=== PATIENT | male | born 1935 | race Caucasian/White ===

== ENCOUNTER 2018-10-11 14:56 | Observation (INO) ==
[2018-10-11] MEDS ORDERED: Naloxone 0.4 MG/ML INJ IVP PRN (17:51)
[2018-10-11] MEDS ORDERED: *HR* LORazepam 2 MG/ML VIAL IVP PRN (18:28)
--- NOTE | 2018-10-11 18:38 | Internal Med History&Physical ---
Date of Encounter: 10/11/18 Time of Encounter: 18:32 Internal Medicine - H&P: HPI History of present illness: Mr. CRAWFORD is a 83 year old male with history of CAD s/p CABG, hypertension, atrial fibrillation, neck surgery with screws placed presented as a transfer from for syncopal episode. He was transferred here for Neurology evaluation. Patient states he was starting a new medication today by his doctor, unsure of what medication changes were made. He took his medications and then went in his truck in a parking lot for an unknown amount of time. He was reported to be pale and diaphoretic. Patient does not recall this episode. He denies any dizziness, blurry vision, n/v, chest pain, fevers/chills, change in hearing, loss of balance, rigidity. He has not had any episode like this in the past. He was showed to have atrial fibrillation on monitor in ED. He was confused but eventually returned to baseline mental status. At [facility], ECG done showed irregularly irregular rhythm at 73 bpm, no ST or T wave changes. A CBC was unremarkable. CMP was normal outside of borderline elevated total bilirubin. INR 1.1, Chest x-ray showed no acute process. CT head without contrast showed no acute process, did show a chronic large bony area 4 cm inferior to occipital region that is post surgical from 2009. Internal Medicine - H&P: Meds Allergy/AdvReac Type Severity Reaction Status Date / Time No Known Allergies Allergy Verified 10/11/18 18:55 All Systems PM: A 10-system review of systems was performed and is negative for pertinent findings except as documented above in the HPI. - Constitutional Constitutional: no chills, no fever(s), no night sweats - EENT Eyes: no change in vision, no discharge, no pain, no photophobia Ears: no ear discharge, no ear pain, no tinnitus Nose, mouth and throat: no dysphagia, no nasal discharge, no neck pain, no sore throat - Cardiovascular Cardiovascular ROS IM: syncope, no chest pain, no diaphoresis, no dyspnea, no lightheadedness, no palpitations - Respiratory Respiratory: no cough, no dyspnea, no wheezing, no excessive phlegm production - Gastrointestinal Gastrointestinal: no abdominal pain, no diarrhea, no hematemesis, no hematochezia, no melena, no nausea, no vomiting - Musculoskeletal Musculoskeletal ROS IM: no numbness, no tingling - Integumentary Integumentary IM: no rash, no unusual bruising - Neurological Neurological ROS: no confusion, no convulsions, no focal weakness, no numbness, no tingling, no tremor(s) - Hematologic/Lymphatic Hematologic/Lymphatic: no easy bruising - Constitutional General appearance: Present: A&O X 3, pleasant, no acute distress Exam: . - Head Head exam: Present: atraumatic, normocephalic - Eye Eye exam: Present: PERRL, conjuntiva pink, sclera anicteric Pupils: Present: PERRL - Neck Neck exam general surgery: Present: supple, trachea midline. Absent: lymphadenopathy Additional comments: posterior neck with firm elevated region of cervical spine that is non-tender, patient states is chronic after emergent neck surgery in the past. - Respiratory Respiratory exam: Present: CTAB. Absent: accessory muscle use, rales, rhonchi, wheezes - Cardiovascular Cardiovascular exam: Present: RRR, +S1, +S2. Absent: diastolic murmur, gallop, rubs, systolic murmur - GI/Abdominal GI/Abdominal exam: Present: normal bowel sounds, soft, no peritoneal signs. Absent: distended, tenderness - Extremities Exam Extremities exam: Present: warm, radial pulses palpable and symmetrical. Absent: calf tenderness, cyanotic, pedal edema - Neurological Exam Neurological exam: Present: CN II-XII intact, oriented X3, no focal deficits. Absent: pronater drift, facial droop, speech deficit - Skin Skin exam: Present: dry, intact - Assessment and Plan (1) Syncope and collapse Current Visit: Yes Status: Acute Assessment and plan: There is concern for seizure episode. Event went unwitness and patient had no presyncopal symptoms. He was found to have loss of both bowel and bladder continence. He started new medications today unsure of what they are. Basic workup in ED was negative, including CT head without any acute changes. No focal deficits to suggest stroke. - Medication records requestion, eval for possible cause of syncope - Neurology consulted, recommendations appreciated. - Ativan 1 mg IV prn seizure-like activy - Seizure precautions. - Echocardiogram, carotidd duplex bilateral (2) History of CVA (cerebrovascular accident) Current Visit: Yes Status: Acute (3) Hypertension Current Visit: Yes Status: Acute Assessment and plan: Home medication records requestion. Currently will give IV Hydralazine prn HTN until med rec done. Qualifiers: Hypertension type: essential hypertension Qualified Code(s): I10 - Essential (primary) hypertension (4) Coronary artery disease Current Visit: Yes Status: Acute Assessment and plan: Resume home medications when med rec complete. Qualifiers: Coronary Disease-Associated Artery/Lesion type: [place] artery [place] vs. transplanted heart: [place] heart Associated angina: without angina Qualified Code(s): I25.10 - Atherosclerotic heart disease of [place] coronary artery without angina pectoris (5) Atrial fibrillation Current Visit: Yes Status: Acute Assessment and plan: Unsure if patient is on heart rate medication, need med rec for this. Will place IV Lopressor prn tachycardia. Qualifiers: Atrial fibrillation type: chronic Qualified Code(s): I48.2 - Chronic atrial fibrillation - Time Spent With Patient Total time spent is greater than 50% in coordination of care (as documented) at patient's floor/unit and/or counseling patient:
[2018-10-11] MEDS ORDERED: *HR* Metoprolol 5 MG/5 ML VIAL IVP PRN (18:54)
[2018-10-11] MEDS ORDERED: Perflutren Lipid Microsphere 1.3 ML in 0.9 % Sodium Chloride 8.7 ML IVP ONE (19:39)
[2018-10-12 02:49] LABS: Basophils # 0.1 K/mcL (0.0-0.2); Basophils % 0.7 %; Eosinophils # 0.2 K/mcL (0.0-0.6); Eosinophils % 3.2 %; Hematocrit 45.4 % (37.5-50.1); Hemoglobin 14.8 g/dL (12.9-16.9); Immature Granulocytes % 0.4 % (0-4); Lymphocytes # 1.2 K/mcL (0.6-4.6); Lymphocytes % 17.3 %; Mean Corpuscular HGB Conc 32.6 g/dL (31.6-35.5); Mean Corpuscular Hemoglobin 30.7 pg (28.0-33.3); Mean Corpuscular Volume 94.2 fL (83.0-100.0); Mean Platelet Volume 11.3 fL (9.4-12.4); Monocytes # 0.9 K/mcL (0.0-1.3); Neutrophils # 4.7 K/mcL (1.6-8.9); Platelet Count 184 K/mcL (140-400); Red Blood Count 4.82 M/mcL (4.19-5.50); Red Cell Distribution Width 12.1 % (11.5-14.5); Segmented Neutrophils % 66.4 %; White Blood Count 7.1 K/mcL (4.3-11.1)
[2018-10-12 03:10] LABS: BUN/Creatinine Ratio 14 (6-26); Blood Urea Nitrogen 17 mg/dL (8-23); Calcium 9.2 mg/dL (8.6-10.3); Carbon Dioxide 27 mEq/L (23-29); Chloride 101 mEq/L (98-107); Glucose 89 mg/dL (70-105); Osmolality,Calculated 285 (280-300); Potassium 3.7 mEq/L (3.5-5.1); Sodium 137 mEq/L (136-145); eGFR For African Americans > 60 (> 60); eGFR For Non-African Americans 58 (> 60)
[2018-10-12] MEDS: *HR* Heparin 5,000 UNIT/ML VIAL SQ SCH ×2 (06:00→16:04)
--- NOTE | 2018-10-12 08:46 | Internal Med Progress Note ---
Hospitalist Progress Note - Encounter Date of Encounter: 10/12/18 Time of Encounter: 08:46 - Subjective Interval History: Patient was seen and examined at bedside he is alert and appropriate does not appear to have any focal deficits-defibrillator implant with the patient verbalized understanding. - Exam Vitals: Temp Pulse Resp BP Pulse Ox 97.6 F 58 16 121/78 96 10/12/18 06:39 10/12/18 06:39 10/12/18 06:39 10/12/18 06:39 10/12/18 06:39 Exam: Skin: Free of rash and discoloration. Eyes: Sclera is white. There is no discharge from eyes. ENMT: Oral/pharyngeal mucosa is normal in appearance. There is no discharge from nose or ears. Respiratory: Normal breath sounds with no crackles and wheezes bilaterally. CV: Heart is regular with no gallop or murmur. GI: Abdomen is flat and soft with no palpable mass or visceromegaly. : There is no tenderness in patient's flanks bilaterally. Neuro exam: He has good strength in upper and lower extremities. He has normal eye movements. Psychiatric: He has normal affect. His thought process is appropriate to the situation. - Assessment and Plan (1) Syncope and collapse Current Visit: Yes Status: Acute Assessment and Plan: There is concern for seizure episode. Event went unwitness and patient had no presyncopal symptoms. He was found to have loss of both bowel and bladder cont inence. He started new medications today unsure of what they are. Basic workup in ED was negative, including CT head without any acute changes. No focal deficits to suggest stroke. - Medication records requestion, eval for possible cause of syncope - Neurology consulted, recommendations appreciated. - Ativan 1 mg IV prn seizure-like activy - Seizure precautions. - Echocardiogram, carotidd duplex bilateral 10/12 Received medication list appears the patient has been initiated also new medic mounika that may be contributing to his syncopal episode including Lasix, labetalol and glipizide. Neurology consult and appreciate recommendations Continue seizure precautions Echocardiogram and carotid duplex Will check orthostatic vital signs (2) History of CVA (cerebrovascular accident) Current Visit: Yes Status: Acute Assessment and Plan: History of CVA continue with aspirin and statin Will need workup with neurology continuous cardiac monitoring (3) Hypertension Current Visit: Yes Status: Acute Assessment and Plan: Has orthostatic hypotension which we will hold for now. Currently will give IV Hydralazine prn HTN until med rec done. (4) Coronary artery disease Current Visit: Yes Status: Acute Assessment and Plan: Resume home medications -we will hold Coreg for now due to low blood pressure (5) Atrial fibrillation Current Visit: Yes Status: Acute Assessment and Plan: Currently rate controlled holding Coreg at this time due to hypotension continue daily aspirin - Time Spent with Patient Total time spent is greater than 50% in coordination of care (as documented) at patient's floor/unit and/or counseling patient: Internal Medicine: Result - Labs CBC & Chem 7: 10/12/18 01:55 10/12/18 01:55 Labs: Short CBC 10/12/18 Range/Units 01:55 WBC 7.1 (4.3-11.1) K/mcL Hgb 14.8 (12.9-16.9) g/dL Hct 45.4 (37.5-50.1) % Plt Count 184 (140-400) K/mcL Neutrophils # 4.7 (1.6-8.9) K/mcL BMP 10/12/18 01:55 Sodium 137 Potassium 3.7 Chloride 101 Carbon Dioxide 27 BUN 17 Creatinine 1.20 Glucose 89 Calcium 9.2 Consult Discharge Plan - Plan [facility] - 10/22/18 11:15 am (3) Hypertension Qualifiers: Hypertension type: essential hypertension Qualified Code(s): I10 - Essential (primary) hypertension (4) Coronary artery disease Qualifiers: Coronary Disease-Associated Artery/Lesion type: [place] artery [place] vs. transplanted heart: [place] heart Associated angina: without angina Qualified Code(s): I25.10 - Atherosclerotic heart disease of [place] coronary artery without angina pectoris (5) Atrial fibrillation Qualifiers: Atrial fibrillation type: chronic Qualified Code(s): I48.2 - Chronic atrial fibrillation
--- NOTE | 2018-10-12 11:45 | Neurology - Consult Note ---
<Fabiano Gilliam - Last Filed: 10/12/18 11:41> Date of Encounter: 10/12/18 Time of Encounter: 09:30 Assessment and Plan (1) Syncope and collapse Current Visit: Yes Status: Acute EEG to rule out seizure activity as cause of loss of consciousness. CT scan was negative for stroke. EKG showed atrial fibrillation making further stroke work up necessary. Will obtain Echocardiogram and Carotid Duplex to rule out embolic sources. Will obtain medication list to rule out medication induced syncopal episode. History of Present Illness Chief complaint: "Fell over in my truck" HPI: Mr. Robles is a 83 year old male with a past medical history of CAD s/p CABG, HTN, and A. Fib who was admitted from [place] following recent episode of loss of conciousness. He reports that the last thing he remembers he was getting in to his truck to drive to a friends house and then woke up in the hospital. He is unsure how he came to the hospital or any symptoms of dizziness, vertigo, nausea, chest pain or shortness of breath before he awoke in the ED. He admits to recent changes in his medications which he believes were the cause of this episode. He denies any similar episodes in the past. He further denies any history of stroke or seizures. Brief chart review mentioned patient may have lost bowel and bladder function during this episode, but patient was unable to verify this. Past Med Surg Social Fam HX - Past Medical History Medical history: hypertension, migraine Additional medical history: CABG, pacer/ defib Psychiatric history: no psych history - Past Surgical History Surgical History: appendectomy, cholecystectomy, coronary bypass (CABG), orthopedic, other Additional surgical history: screws/ plates in neck - Social History Smoking Status: Never smoker Smokeless Tobacco Status: No Alcohol use: none Drug use: none - Family History Father Living Status: Age at : 86 Cause of : unk Hx Family Cardiac Disorders: Yes Hx Family Respiratory Disorders: Yes Mother Age: 105 Living Status: Age at : 105 Medications and Allergies Aspirin 325 mg PO DAILY 10/12/18 [History] Carvedilol [Coreg] 6.25 mg PO BIDWM 10/12/18 [History] Cholecalciferol (D-3) [Vitamin D] 2,000 unit PO DAILY 10/12/18 [History] Furosemide [Lasix] 80 mg PO DAILY 10/12/18 [History] GlipiZIDE [Glucotrol] 10 mg PO 0800 10/12/18 [History] Mupirocin [Bactroban Oint] 1 appl TP TID 10/12/18 [History] Potassium Chloride [K-Tab ER] 20 meq PO DAILY 10/12/18 [History] Sildenafil Citrate 100 mg PO PRN PRN 10/12/18 [History] Tolnaftate [Antifungal Cream] 1 appl TP BID 10/12/18 [History] Triamcinolone Acet 0.1% CRM [Kenalog] 1 appl TP BID 10/12/18 [History] Allergy/AdvReac Type Severity Reaction Status Date / Time No Known Allergies Allergy Verified 10/11/18 18:55 All Systems: The remainder of the systems were reviewed and are negative - Constitutional Constitutional ROS IM: no chills, no daytime sleepiness, no excessive sweating, no fatigue, no lethargy - Nose, Mouth, Throat Nose, mouth and throat: abnormal hearing (some diminished hearing bilaterally), no bleeding gums, no disequilibrium, no dizziness, no headache(s) - Cardiovascular Cardiovascular ROS IM: no acrocyanosis, no chest pain, no dyspnea, no rapid heart rate, no slow heart rate - Respiratory Respiratory IM: no cough, no dyspnea - Gastrointestinal Gastrointestinal: no abdominal pain, no bloating, no change in stool character - Genitourinary Genitourinary ROS: no change in urinary stream, no difficulty urinating, no flank pain - Musculoskeletal Musculoskeletal ROS IM: arthralgias, no abnormal gait, no numbness, no radiating pain into limb, no stiffness - Integumentary Integumentary IM: no acne, no bleeding lesions - Neurological Neurological ROS: no abnormal gait, no behavioral changes, no disequilibrium, no dizziness, no focal weakness, no lack of coordination, no loss of vision, no paresthesias - Psychiatric Psychiatric general PM: no abnormal sleep pattern, no anhedonia, no anxiety, no behavioral changes, no confusion, no depression, no difficulty concentrating, no hopelessness, no irritability - Endocrine Endocrine IM: no fatigue, no flushing - Hematologic/Lymphatic Hematologic/Lymphatic pediatric: no easy bleeding Physical Examination - Vital Signs Vital Signs: Initial Vital Signs Temp Pulse Resp BP Pulse Ox 97.6 F 95 14 103/68 93 10/11/18 19:11 10/11/18 19:11 10/11/18 19:11 10/11/18 19:11 10/11/18 19:11 - Constitutional General appearance: comfortable - Neurologic Sensorimotor examination: intact Detailed motor examination: grossly full strength in all extremities Detailed sensory examination: intact Reflex and gait examination: normal gait Reflexes: Biceps: 2+, Triceps: 2+, Brachioradialis: 2+, Patella: 2+, Achilles: 2+ Mental Status Examination: awake, alert, oriented to person, oriented to place, oriented to time, follows commands appropriately, makes eye contact Cranial nerve examination: PERRL, EOMI, visual carter intact, sensory to face intact, no facial asymmetry is present, no dysarthria, soft palate elevates bilaterally upon phonation, flexes SCM and trapezius muscles symmetrically with full power, tongue protrudes midline, no atrophy or facial fasiculations present Cerebellar examination: no dysmetria, performs finger to nose and heel to tripathi symmetrically without ataxia, no gait ataxia, no difficulty with rapid alternating movements Results - Laboratory Findings CBC and BMP: 10/12/18 01:55 10/12/18 01:55 Abnormal lab findings: Abnormal lab results Est GFR (Non-Af Amer) 58 (> 60) L 10/12/18 01:55 Consult Discharge Plan - Plan [facility] Provider[facility] - 10/22/18 11:15 am <Paul Silva I - Last Filed: 10/12/18 12:02> Date of Encounter: 10/12/18 Assessment and Plan (1) Syncope and collapse Current Visit: Yes Status: Acute Pt was seen and examined, my medical decision was reviewed with the Resident Physician, I agree with the documented findings, disposition and treatment plan, as described except to the extent set forth below Patient was seen and examined at the moment does not have any focal motor neurological deficit Concern of some mental status changes earlier that has been resolved now suggest checking for underlying any metabolic or infectious etiology Though possibility of a seizure but the description does not look like a typical seizures we will get an EEG At the same time is a concern of atrial fibrillation suggest continuous monitoring has possibility of embolic event may need to be anticoagulated Stable from neurology standpoint Paul Silva MD History of Present Illness HPI: Mr. Robles is a 83 year old male All Systems: The remainder of the systems were reviewed and are negative Physical Examination - Vital Signs Vital Signs: Initial Vital Signs Temp Pulse Resp BP Pulse Ox 97.6 F 95 14 103/68 93 10/11/18 19:11 10/11/18 19:11 10/11/18 19:11 10/11/18 19:11 10/11/18 19:11 - Exam Exam: GENERAL: Comfortable in no acute distress HEENT: Normal LUNGS: CTA HEART: RRR, S1 S2 Audible, no murmur EXTREMITIES: No Pedal edema. DETAILED NEUROLOGICAL EXAMINATION: MENTAL STATUS: Oriented to person, place, Recent Memory Intact, Attention span and concentration is normal Cranial Nerve Examination: CN - II: Visual Acuity, Field of Vision Normal, Fundus examination: No disk edema, Pupils- size shape reaction to light and accommodation: All normal. CN III, IV, : External ocular movements were intact, Pupils were reactive, Nodrooping of the eyelids CN V: Sensation over the face to light touch and pinprick all normal. Corneal reflexes not tested, jaw jerk normal. CN VII: No facial asymmetry, no flattening of nasolabial folds, no difficulty in closing the eyes, no loss of forehead wrinkles, no difficulty in eye-closure, frowning raising eyebrows. CNVIII: No significant hearing loss CN IX, X: Uvula centralized not deviated, Gag reflex: Not tested CN X1: Sternocleidomastoid, trapezius, normal or evidence of any weakness. CN X11: No Dysarthria, no wasting or fibrilation f tongue muscles, no deviation, tongue muscle strength normal. Motor examination: No hypertrophy, tone was normal, power grade 0-5 Upper limbs Proximal- No difficulty in lifting the arms above the head. Distal- No weakness in distal muscles On formal testing 5/5 all over Lower limbs On formal testing 5/5 all over Coordination: [id number] normal. Target pursuit normal finger tapping normal, Rapid alternating moment of wrist normal Sensory system: Superficial sensations- Touch normal. Pain- Pinprick, Temperature all normal, Deep sensation normal, Joint position sense normal. Cortical sensation, Tactile discrimination, localization and extinction all normal. Deep tendon reflexes. Symmetrical bilateral, No evidence of Babinski. No sign of meningeal irritation Gait Examination: Deferred Results - Laboratory Findings CBC and BMP: 10/12/18 01:55 10/12/18 01:55 Abnormal lab findings: Abnormal lab results Est GFR (Non-Af Amer) 58 (> 60) L 10/12/18 01:55
[2018-10-13] MEDS: *HR* Heparin 5,000 UNIT/ML VIAL SQ SCH ×3 (06:34→19:30)
[2018-10-13] MEDS: Cyanocobalamin (B-12) 1,000 MCG TABLET PO SCH (08:50)
[2018-10-13] MEDS: Aspirin 325 MG TABLET PO SCH (08:50)
[2018-10-13] MEDS: Cholecalciferol (D-3) 1,000 UNIT (25MCG) TABLET PO SCH (08:50)
[2018-10-13] MEDS ORDERED: Ondansetron ODT 4 MG TAB.RAPDIS SL PRN (10:19)
[2018-10-13] MEDS ORDERED: D5% in Water 1,000 ML IVC PRN (12:08)
[2018-10-13] MEDS ORDERED: Dextrose Gel 15 GM/37.5 ML TUBE PO PRN ×2 (12:08)
[2018-10-13] MEDS ORDERED: *HR* Dextrose 50 % in Water (Syg) 50 ML SYRINGE IVP PRN (12:08)
[2018-10-13 12:38] LABS: Calcium 9.2 mg/dL (8.6-10.3); Potassium 4.1 mEq/L (3.5-5.1)
--- NOTE | 2018-10-13 14:26 | Internal Med Progress Note ---
Hospitalist Progress Note - Encounter Date of Encounter: 10/13/18 Time of Encounter: 14:26 - Subjective Interval History: Patient was seen and examined at bedside patient voices frustration concerned about EEG not being completed- advised patient that we will discuss with neurology if this need to be completed. Also discussed that his orthostatics VS are positive and that he needs to be monitored and requires IVF Patient again becomes angry and threatens to leave- advised patient he will need to leave AMA- also want to review medications with him which I did, will cont to hold lasix recheck orthostatic - Exam Vitals: Temp Pulse Resp BP Pulse Ox 97.4 F L 85 16 113/69 98 10/13/18 06:52 10/13/18 06:52 10/13/18 06:52 10/13/18 06:52 10/13/18 06:52 Exam: Skin: Free of rash and discoloration. Eyes: Sclera is white. There is no discharge from eyes. ENMT: Oral/pharyngeal mucosa is normal in appearance. There is no discharge from nose or ears. Respiratory: Normal breath sounds with no crackles and wheezes bilaterally. CV: Heart is regular with no gallop or murmur. GI: Abdomen is flat and soft with no palpable mass or visceromegaly. : There is no tenderness in patient's flanks bilaterally. Neuro exam: He has good strength in upper and lower extremities. He has normal eye movements. Psychiatric: He has normal affect. His thought process is appropriate to the situation. - Assessment and Plan (1) Syncope and collapse Current Visit: Yes Status: Acute Assessment and Plan: There is concern for seizure episode. Event went unwitness and patient had no presyncopal symptoms. He was found to have loss of both bowel and bladder continence. He started new medications today unsure of what they are. Basic workup in ED was negative, including CT head without any acute changes. No focal deficits to suggest stroke. - Medication records requestion, eval for possible cause of syncope - Neurology consulted, recommendations appreciated. - Ativan 1 mg IV prn seizure-like activy - Seizure precautions. - Echocardiogram, carotidd duplex bilateral 10/12 Received medication list appears the patient has been initiated also new medicines that may be contributing to his syncopal episode including Lasix, labetalol and glipizide. Neurology consult and appreciate recommendations Continue seizure precautions Echocardiogram and carotid duplex Will check orthostatic vital signs 10/12 Orthostatic vital signs are positive-syncopal episode most likely related to medications we will continue the hold Lasix as well as Carvedilol -Neurology consulted and appreciate recommendations-do not suspect neurological in etiology-no EEG at this time per neurology recommendation -Echocardiogram completed Impressions: Technically sub-optimal due to poor echocardiographic windows. Definity echo contrast was used. Grossly normal LV systolic function. Not all LV wall segments were well visualized. Indeterminate diastolic function. Right ventricle is not well evaluated. Mild mitral regurgitation. Suboptimal TR signal to measure RVSP. A device lead was visualized in the right atrium and right ventricle. Carotid duplex with nonstenotic plaque CT of head without any acute changes -We will give IV fluids and continue to monitor blood pressure closely Fall precautions - (2) History of CVA (cerebrovascular accident) Current Visit: Yes Status: Acute Assessment and Plan: History of CVA continue with aspirin and statin Will need workup with neurology continuous cardiac monitoring -10/13 History of CVA past with residual left-sided weakness-continue aspirin and statin No new focal deficits noted (3) Hypertension Current Visit: Yes Status: Acute Assessment and Plan: Has orthostatic hypotension which we will hold for now. Currently will give IV Hydralazine prn HTN until med rec done. 10/13 Patient has been experiencing hypotension we will hold all medications at this time and give IV fluids We will resume medication once back to baseline-and adjust accordingly (4) Coronary artery disease Current Visit: Yes Status: Acute Assessment and Plan: Resume home medications -we will hold Coreg for now due to low blood pressure 10/13 Patient received correctness a.m. however he did have a drop in blood pressure w hich we will hold for now Continue with aspirin and statin no chest pain this time cardiac monitoring - (5) Atrial fibrillation Current Visit: Yes Status: Acute Assessment and Plan: Currently rate controlled holding Coreg at this time due to hypotension continue daily aspirin 10/13 Currently rate controlled continue the hold Coreg at this time due to hypertension continue with daily aspirin (6) GRECIA (acute kidney injury) Current Visit: Yes Status: Acute Assessment and Plan: Appears to be prerenal continue with IV fluids-maintain MAP greater than 60 Monitor Creatinine Avoid nephrotoxins (7) Orthostatic hypotension Current Visit: Yes Status: Acute Assessment and Plan: Medication induced continue to hold Lasix,coreg Continue with IV fluids - Time Spent with Patient Total time spent is greater than 50% in coordination of care (as documented) at patient's floor/unit and/or counseling patient: Internal Medicine: Result - Labs CBC & Chem 7: 10/12/18 01:55 10/13/18 12:05 Labs: BMP 10/13/18 12:05 Sodium 135 L Potassium 4.1 Chloride 98 Carbon Dioxide 30 H BUN 25 H Creatinine 1.41 H Glucose 153 H Calcium 9.2 Consult Discharge Plan - Plan [facility] Care Provider[facility] - 10/22/18 11:15 am (3) Hypertension Qualifiers: Hypertension type: essential hypertension Qualified Code(s): I10 - Essential (primary) hypertension (4) Coronary artery disease Qualifiers: Coronary Disease-Associated Artery/Lesion type: [place] artery [place] vs. transplanted heart: [place] heart Associated angina: without angina Qualified Code(s): I25.10 - Atherosclerotic heart disease of [place] coronary artery without angina pectoris (5) Atrial fibrillation Qualifiers: Atrial fibrillation type: chronic Qualified Code(s): I48.2 - Chronic atrial fibrillation
[2018-10-13] MEDS ORDERED: 0.9 % Sodium Chloride 1,000 ML IVC SCH ×2 (14:30→15:00)
[2018-10-13] MEDS ORDERED: 0.9 % Sodium Chloride 500 ML IVC ONE (15:06)
--- NOTE | 2018-10-13 15:58 | Neurology Progress Note ---
Date of Encounter: 10/13/18 Time of Encounter: 15:53 Assessment and Plan (1) Syncope and collapse Current Visit: Yes Status: Acute Patient appears to be hypotensive and orthostatic and the episode of loss of consciousness likely secondary to a syncopal episode. seizure is unlikely. Patient is currently significantly orthostatic and he is being treated for fluid rescucitation. He is likely severely dehydrated and his creatinine also eleva justin. Patient has atrial fibrillation but his rate is well controlled. I would recommend no further testing from neurology perspective. I do not believe this is secondary to neurological disorder. Will sign off at this movement. Please call if any questions. I spent 35 minutes face to face with the patient, of which more than 50% of time was spent in counselling and coordination of care Subjective Principal diagnosis: Syncope Interval history: Patient is seen and examined at the bedside in the presence of his and today he is feeling better and wants to go home however, patient is having hypotension and is orthostatic. Patient states that he was in his truck waiting for it to be towed and he did not eat and it was hot and then he passed out and woke up in the ambulance. He has no prior history of seizure disorder. He is found to be having orthostatic hypotension and even when is sitting position and his BP was 60/39. No focal neurological deficits seen. CT of head at outside hospital was read as normal study and no acute intracranial changes. Objective - Constitutional Vitals: Temp Pulse Resp BP Pulse Ox 97.7 F 80 16 80/54 97 10/13/18 14:38 10/13/18 14:38 10/13/18 14:38 10/13/18 14:38 10/13/18 14:38 - Neurological Exam Sensorimotor examination: Present: intact Motor Examination: Present: grossly full strength in all extremities Motor examination - right side: 5/5: deltoids, biceps, triceps, wrist flexion, wrist extension, proposal review analyst, hip flexors, tibialis Anterior, quadriceps, toe extension (EHL), plantarflexion Motor examination - left side: 5/5: deltoids, biceps, triceps, wrist flexion, wrist extension, hip flexors, proposal review analyst, quadriceps, tibialis Anterior, toe extension (EHL), plantarflexion Sensation intact: Present: intact Posture: Present: other (None) Reflex and gait examination: normal gait Mental Status Examination: Present: awake, alert, oriented to person, oriented to place, oriented to time, follows commands appropriately, answers questions appropriately, no agnosia, no aphasia, no aproxia, lucid, does not follow commands Cranial nerve examination: Present: PERRL, EOMI, visual carter intact, sensory to face intact, no facial asymmetry is present, no dysarthria, hearing is intact symmetrically, soft palate elevates bilaterally upon phonation, flexes SCM and trapezius muscles symmetrically with full power, tongue protrudes midline, no atrophy or facial fasiculations present Cerebellar examination: Present: no dysmetria, performs finger to nose and heel to tripathi symmetrically without ataxia, no gait ataxia, no difficulty with rapid alternating movements Results - Laboratory Findings CBC and BMP: 10/12/18 01:55 10/13/18 12:05 Abnormal lab findings: Abnormal lab results Sodium 135 mEq/L (136-145) L 10/13/18 12:05 Carbon Dioxide 30 mEq/L (23-29) H 10/13/18 12:05 BUN 25 mg/dL (8-23) H 10/13/18 12:05 Creatinine 1.41 mg/dL (0.70-1.30) H 10/13/18 12:05 Est GFR ( Amer) 58 (> 60) L 10/13/18 12:05 Est GFR (Non-Af Amer) 48 (> 60) L 10/13/18 12:05 Glucose 153 mg/dL (70-105) H 10/13/18 12:05 Consult Discharge Plan - Plan [facility]: [facility] [Primary Care Provider[facility] - 10/22/18 11:15 am
[2018-10-13 17:39] LABS: Bilirubin,Urine Small (Negative); Blood,Urine Negative (Negative); Clarity,Urine Clear (Clear); Color,Urine Dark Yellow (Yellow); Glucose,Urine (UA) Normal (Normal); Ketones,Urine Negative (Negative); Leukocyte Esterase,Urine Negative (Negative); Nitrite,Urine Negative (Negative); PH,Urine 5.5 pH Units (5.0-8.0); Protein,Urine Trace mg/dL (Neg-Trace); Specific Gravity,Urine 1.025 (1.010-1.025); Urobilinogen,Urine Normal (Normal)
[2018-10-13] MEDS: Insulin LISPRO 300 UNITS/3 ML VIAL SQ SCH (17:55)
[2018-10-14] MEDS: *HR* Heparin 5,000 UNIT/ML VIAL SQ SCH (05:35)
[2018-10-14 07:39] LABS: Basophils # 0.1 K/mcL (0.0-0.2); Basophils % 0.9 %; Eosinophils # 0.2 K/mcL (0.0-0.6); Eosinophils % 2.8 %; Hematocrit 43.2 % (37.5-50.1); Immature Granulocytes % 0.2 % (0-4); Lymphocytes # 1.2 K/mcL (0.6-4.6); Lymphocytes % 19.8 %; Mean Corpuscular HGB Conc 32.4 g/dL (31.6-35.5); Mean Corpuscular Hemoglobin 31.2 pg (28.0-33.3); Mean Corpuscular Volume 96.2 fL (83.0-100.0); Monocytes # 0.7 K/mcL (0.0-1.3); Monocytes % 11.7 %; Neutrophils # 3.8 K/mcL (1.6-8.9); Platelet Count 162 K/mcL (140-400); Red Blood Count 4.49 M/mcL (4.19-5.50); Segmented Neutrophils % 64.6 %; White Blood Count 5.8 K/mcL (4.3-11.1)
[2018-10-14 07:54] LABS: BUN/Creatinine Ratio 19 (6-26); Blood Urea Nitrogen 25 mg/dL (8-23); Calcium 8.9 mg/dL (8.6-10.3); Carbon Dioxide 29 mEq/L (23-29); Chloride 100 mEq/L (98-107); Glucose 135 mg/dL (70-105); Osmolality,Calculated 288 (280-300); Potassium 4.7 mEq/L (3.5-5.1); Sodium 136 mEq/L (136-145); eGFR For African Americans > 60 (> 60); eGFR For Non-African Americans 53 (> 60)
[2018-10-14] MEDS: Insulin LISPRO 300 UNITS/3 ML VIAL SQ SCH (09:19)
[2018-10-14] MEDS: Cholecalciferol (D-3) 1,000 UNIT (25MCG) TABLET PO SCH (09:25)
[2018-10-14] MEDS: Aspirin 325 MG TABLET PO SCH (09:25)
[2018-10-14] MEDS: Cyanocobalamin (B-12) 1,000 MCG TABLET PO SCH (09:25)
--- NOTE | 2018-10-14 10:19 | Discharge Summary ---
Orders not resulted at time of discharge: Pending orders 10/13/18 12:05 Vitamin B1 (Thiamine) Whole Bl Routine Date of Encounter: 10/14/18 Time of Encounter: 10:16 - Discharge Diagnosis (1) History of CVA (cerebrovascular accident) Priority: Secondary Status: Acute (2) Syncope and collapse Priority: Primary Status: Acute (3) Hypertension Priority: Primary Status: Acute Qualifiers: Hypertension type: essential hypertension Qualified Code(s): I10 - Essential (primary) hypertension (4) Coronary artery disease Priority: Secondary Status: Acute Qualifiers: Coronary Disease-Associated Artery/Lesion type: [place] artery [place] vs. transplanted heart: [place] heart Associated angina: without angina Qualified Code(s): I25.10 - Atherosclerotic heart disease of [place] coronary artery without angina pectoris (5) Atrial fibrillation Priority: Secondary Status: Acute Qualifiers: Atrial fibrillation type: chronic Qualified Code(s): I48.2 - Chronic atrial fibrillation (6) GRECIA (acute kidney injury) Priority: Primary Status: Acute (7) Orthostatic hypotension Priority: Primary Status: Acute Hospital course: Mr. Robles is a 83 year old male with PMH CVA, A. fib (not on AC; stopped years ago per Primary outpatient [facility] [employer] per patient), HTN and CAD who presented to OSH on 10/11/2018 after he was found unresponsive in his automobile. He was transferred to [facility] for neurology evaluation. There was initially concern for possible seizure-like activity in CVA need to be considered with history of A. fib. Head CT at OSH unremarkable. Echocardiogram showed grossly normal LV systolic function and mild mitral regurgitation. EKG without acute ST changes. Troponins were not cycled. Bilateral carotid Dopplers showed nonstenotic plaque. No further seizure-like activity was reported throughout his hospitalization and mentation returned to baseline. He was evaluated by neurology who did not suspect neurological etiology. He was found to be orthostatic with SBP's in 70s to 80s at time. Upon further questioning patient on day of discharge patient took all morning medications including oral hypoglycemic, carvedilol and furosemide. Did not eat breakfast that morning and was sitting in a hot taught [employer] for an unknown amount time and is found unresponsive. Suspect multifactorial with dehydration and hypoten therese. His furosemide and carvedilol was stopped and BP remained normotensive. Patient was advised to log of BP and follow-up with PCP within one week. Carvedilol and furosemide will not be resumed at discharge. On day of discharge patient says he is back to baseline. - Time Spent with Patient Total time spent providing and/or coordinating discharge services: - Discharge Medications Prescriptions: Continued Cholecalciferol (D-3) [Vitamin D] 2,000 unit PO DAILY Aspirin 325 mg PO DAILY Sildenafil Citrate 100 mg PO PRN PRN PRN Reason: Erectile Dysfunction Cyanocobalamin (B-12) [Vitamin B12] 1,000 mcg PO DAILY glipiZIDE [Glipizide] 10 mg PO QAM Discontinued Carvedilol [Coreg] 6.25 mg PO BIDWM Furosemide [Lasix] 80 mg PO DAILY PRN PRN Reason: BLOOD PRESSURE/SWELLING Potassium Chloride [Klor-Con 10] 20 meq PO QAM Home Medications: Aspirin 325 mg PO DAILY 10/12/18 [History] Cholecalciferol (D-3) [Vitamin D] 2,000 unit PO DAILY 10/12/18 [History] Cyanocobalamin (B-12) [Vitamin B12] 1,000 mcg PO DAILY 10/12/18 [History] Sildenafil Citrate 100 mg PO PRN PRN 10/12/18 [History] glipiZIDE [Glipizide] 10 mg PO QAM 10/12/18 [History] Allergies/Adverse Reactions: Allergy/AdvReac Type Severity Reaction Status Date / Time No Known Allergies Allergy Verified 10/11/18 18:55 Date of admission: 10/11/18 17:30 [facility] care physician[facility] Consults: 10/11/18 18:52 Consult to Neurology [CONS] Routine Consulting Provider: Neurology [facility] Reason for Consult: syncope, possible seizures Call Completed: No Discharging clinician: Kassi Pandey Anticipated date of discharge: 10/14/18 - Constitutional Vitals: Temp Pulse Resp BP Pulse Ox 98.0 F 65 14 119/75 96 10/14/18 07:29 10/14/18 07:29 10/14/18 07:29 10/14/18 07:29 10/14/18 07:29 General appearance: Present: A&O X 3, pleasant, no acute distress Exam: Skin: Free of rash and discoloration. Eyes: Sclera is white. There is no discharge from eyes. ENMT: Oral/pharyngeal mucosa is normal in appearance. There is no discharge from nose or ears. Respiratory: Normal breath sounds with no crackles and wheezes bilaterally. CV: Irregular/irregular GI: Abdomen is flat and soft with no palpable mass or visceromegaly. : There is no tenderness in patient's flanks bilaterally. Neuro exam: He has good strength in upper and lower extremities. He has normal eye movements. Psychiatric: He has normal affect. His thought process is appropriate to the situation. - Head Head exam: Present: atraumatic, normocephalic - Eye Eye exam: Present: PERRL, conjuntiva pink, sclera anicteric Pupils: Present: PERRL - Neck Neck exam general surgery: Present: supple, trachea midline. Absent: lymphadenopathy - Respiratory Respiratory exam: Present: CTAB. Absent: accessory muscle use, rales, rhonchi, wheezes - Cardiovascular Cardiovascular exam: Present: irregular rhythm, +S1, +S2. Absent: diastolic murmur, gallop, rubs, systolic murmur - GI/Abdominal GI/Abdominal exam: Present: normal bowel sounds, soft, no peritoneal signs. Absent: distended, tenderness - Extremities Exam Extremities exam: Present: warm, radial pulses palpable and symmetrical. Absent: calf tenderness, cyanotic, pedal edema - Neurological Exam Neurological exam: Present: CN II-XII intact, oriented X3, no focal deficits. Absent: pronater drift, facial droop, speech deficit - Skin Skin exam: Present: dry, intact - Patient Status Disposition: Home, Self-Care Condition: Good Functional capacity at discharge: uses cane/walker Overall status at discharge: patient is back to baseline - Discharge Instructions Instructions: Dehydration (DC), Syncope (DC), Hypotension (DC) [facility] - 10/22/18 11:15 am Additional Instructions: Monitor BP daily and keep log to take to your primary care doctor's office - Diet and Activity Activity: ambulate only with your walker Diet: advance to your usual diet
[2018-10-14 11:28] VITALS: BP 97/65
--- NOTE | 2018-10-15 13:49 | Electrocardiograph Report ---
[address] [address] Test Date: 2018-10-13 Pat Name: Noemy Robles Department: 113 Room: 3B23 Gender: M Travel Manager: : [id number] Requested By: Kayla Romero Order Number: [id number] Reading MD: Boris Pierre Measurements Intervals [place] Rate: 77 P: MA: 0 QRS: 52 QRSD: 122 T: 137 QT: 415 QTc: 447 Interpretive Statements ATRIAL FIBRILLATION MODERATE INTRAVENTRICULAR CONDUCTION DELAY Electronically Signed On 10-15-2018 13:47:58 EDT by Boris Pierre
== END 2018-10-14 13:18 | disposition home or self-care (01) ==
LOC: 3BNU
PROVIDERS: ADMIT Student in an Organized Health Care Education/Training Program; ATTEND Student in an Organized Health Care Education/Training Program

== ENCOUNTER 2019-05-06 15:13 | Inpatient (IN) ==
[2019-05-06] MEDS ORDERED: Aspirin 325 MG TABLET PO ONE (15:18)
[2019-05-06] MEDS ORDERED: *HR* Heparin 5,000 UNIT/ML VIAL IVP ONE (15:29)
[2019-05-06] MEDS ORDERED: *HR* Heparin 5,000 UNIT/ML VIAL IVP PRN ×2 (15:29)
[2019-05-06] MEDS: Furosemide 20 MG/2 ML VIAL IVP ONE ×2 (15:54→15:58)
[2019-05-06] MEDS: Nitroglycerin 0.4 MG TAB.SUBL SL SCH ×2 (15:54→18:46)
[2019-05-06] MEDS: Heparin 25,000 UNIT/250 ML D5W 25,000 UNIT/250 ML IV.SOLN IVC SCH (16:00)
[2019-05-06 16:14] LABS: Heparin anti-factor XA UFH < 0.04 IU/mL (0.30-0.70)
[2019-05-06 16:15] LABS: INR 1.2; Prothrombin Time 13.8 Seconds (9.4-12.1)
[2019-05-06] MEDS ORDERED: Naloxone 0.4 MG/ML INJ IVP PRN (18:37)
[2019-05-06] MEDS ORDERED: Furosemide 40 MG/4 ML VIAL IVP ONE (18:47)
[2019-05-07 04:38] LABS: Hematocrit 40.8 % (37.5-50.1); Hemoglobin 13.4 g/dL (12.9-16.9); Mean Corpuscular HGB Conc 32.8 g/dL (31.6-35.5); Mean Corpuscular Hemoglobin 31.5 pg (28.0-33.3); Mean Platelet Volume 11.3 fL (9.4-12.4); Platelet Count 185 K/mcL (140-400); Red Blood Count 4.25 M/mcL (4.19-5.50); Red Cell Distribution Width 12.4 % (11.5-14.5); White Blood Count 6.2 K/mcL (4.3-11.1)
[2019-05-07 04:50] LABS: Alanine Aminotransferase 7 Units/L (7-52); Albumin 3.2 g/dL (3.5-5.7); Albumin/Globulin Ratio 0.9 (1.1-2.2); Alkaline Phosphatase 86 Units/L (34-104); Aspartate Amino Transferase 16 Units/L (13-39); BUN/Creatinine Ratio 20 (6-26); Bilirubin,Direct 0.2 mg/dL (0.0-0.2); Bilirubin,Indirect 1.1 mg/dL (0.0-1.0); Bilirubin,Total 1.3 mg/dL (0.3-1.0); Blood Urea Nitrogen 20 mg/dL (8-23); Calcium 9.2 mg/dL (8.6-10.3); Carbon Dioxide 33 mEq/L (23-29); Chloride 96 mEq/L (98-107); Globulin 3.5 g/dL (2.4-3.5); Glucose 117 mg/dL (70-105); Magnesium 1.8 mg/dL (1.6-2.6); Osmolality,Calculated 288 (280-300); Potassium 3.1 mEq/L (3.5-5.1); Sodium 137 mEq/L (136-145); Total Protein 6.7 g/dL (6.4-8.9); Troponin I 1.47 ng/mL (< 0.04); eGFR For African Americans > 60 (> 60); eGFR For Non-African Americans > 60 (> 60)
[2019-05-07] MEDS ORDERED: Furosemide 40 MG/4 ML VIAL IVP ONE (08:03)
[2019-05-07] MEDS: Heparin 25,000 UNIT/250 ML D5W 25,000 UNIT/250 ML IV.SOLN IVC SCH (10:00)
[2019-05-07] MEDS ORDERED: Perflutren Lipid Microsphere 1.3 ML in 0.9 % Sodium Chloride 8.7 ML IVP ONE (12:12)
[2019-05-07 16:54] LABS: Potassium 3.7 mEq/L (3.5-5.1)
[2019-05-07 17:04] LABS: Troponin I 1.02 ng/mL (< 0.04)
[2019-05-08] MEDS: Aspirin Enteric Coated 81 MG Tablet PO SCH ×2 (00:38→09:54)
[2019-05-08] MEDS: Heparin 25,000 UNIT/250 ML D5W 25,000 UNIT/250 ML IV.SOLN IVC SCH (04:23)
[2019-05-08 09:41] LABS: BUN/Creatinine Ratio 19 (6-26); Blood Urea Nitrogen 23 mg/dL (8-23); Calcium 9.1 mg/dL (8.6-10.3); Carbon Dioxide 30 mEq/L (23-29); Chloride 94 mEq/L (98-107); Glucose 118 mg/dL (70-105); Osmolality,Calculated 283 (280-300); Potassium 3.9 mEq/L (3.5-5.1); Sodium 134 mEq/L (136-145); eGFR For African Americans > 60 (> 60); eGFR For Non-African Americans 59 (> 60)
[2019-05-09] MEDS: Heparin 25,000 UNIT/250 ML D5W 25,000 UNIT/250 ML IV.SOLN IVC SCH (00:39)
[2019-05-09 04:13] LABS: Basophils % 0.7 %; Eosinophils # 0.2 K/mcL (0.0-0.6); Eosinophils % 2.8 %; Hematocrit 40.4 % (37.5-50.1); Hemoglobin 13.7 g/dL (12.9-16.9); Immature Granulocytes % 0.2 % (0-4); Lymphocytes # 1.2 K/mcL (0.6-4.6); Lymphocytes % 21.3 %; Mean Corpuscular HGB Conc 33.9 g/dL (31.6-35.5); Mean Corpuscular Hemoglobin 31.6 pg (28.0-33.3); Mean Corpuscular Volume 93.1 fL (83.0-100.0); Mean Platelet Volume 10.9 fL (9.4-12.4); Monocytes # 0.7 K/mcL (0.0-1.3); Monocytes % 12.5 %; Neutrophils # 3.6 K/mcL (1.6-8.9); Platelet Count 188 K/mcL (140-400); Red Blood Count 4.34 M/mcL (4.19-5.50); Red Cell Distribution Width 12.2 % (11.5-14.5); Segmented Neutrophils % 62.5 %; White Blood Count 5.8 K/mcL (4.3-11.1)
[2019-05-09 04:31] LABS: BUN/Creatinine Ratio 22 (6-26); Blood Urea Nitrogen 23 mg/dL (8-23); Carbon Dioxide 30 mEq/L (23-29); Chloride 94 mEq/L (98-107); Glucose 120 mg/dL (70-105); Magnesium 1.8 mg/dL (1.6-2.6); Osmolality,Calculated 279 (280-300); Potassium 3.9 mEq/L (3.5-5.1); Sodium 132 mEq/L (136-145); eGFR For African Americans > 60 (> 60); eGFR For Non-African Americans > 60 (> 60)
[2019-05-09] MEDS: Metoprolol XL (24 HR) Succ 25 MG TAB.ER.24H PO SCH (08:55)
[2019-05-09] MEDS: Aspirin Enteric Coated 81 MG Tablet PO SCH (08:55)
[2019-05-09] MEDS ORDERED: *HR* Heparin 10,000 UNIT/10 ML VIAL ONE ×2 (10:15→10:55)
[2019-05-09] MEDS ORDERED: Heparin 1,000 UNITS/500 mL 500 ML ONE (10:15)
[2019-05-09] MEDS ORDERED: Nitroglycerin 1,000 MCG/10 ML VIAL IV ONE (10:15)
[2019-05-09] MEDS ORDERED: ISOVUE-370 200 ML INFUS..BTL ONE ×2 (10:15→11:29)
[2019-05-09] MEDS ORDERED: 0.9 % Sodium Chloride 2,000 ML ONE (10:15)
[2019-05-09] MEDS ORDERED: *HR* FentaNYL (PF) 100 MCG/2 ML VIAL ONE (10:26)
[2019-05-09] MEDS ORDERED: *HR* Midazolam HCl 2 MG/2 ML VIAL ONE (10:26)
[2019-05-09] MEDS ORDERED: *HR* Ticagrelor 90 MG TABLET ONE (11:37)
[2019-05-09] MEDS: *HR* Ticagrelor 90 MG TABLET PO SCH (22:44)
[2019-05-10 04:29] LABS: BUN/Creatinine Ratio 17 (6-26); Blood Urea Nitrogen 21 mg/dL (8-23); eGFR For African Americans > 60 (> 60); eGFR For Non-African Americans 57 (> 60)
[2019-05-10 04:32] LABS: Troponin I 0.34 ng/mL (< 0.04)
[2019-05-10] MEDS: Aspirin Enteric Coated 81 MG Tablet PO SCH (08:44)
[2019-05-10] MEDS: Metoprolol XL (24 HR) Succ 25 MG TAB.ER.24H PO SCH (08:44)
[2019-05-10] MEDS: *HR* Ticagrelor 90 MG TABLET PO SCH (08:44)
[2019-05-10 11:46] VITALS: BP 97/58
== END 2019-05-10 16:32 | disposition home or self-care (01) | DRG 246 ==
LOC: EMEROOARM 15:13 → SUATTDRO 17:04 → 2NENU 17:04
PROVIDERS: ADMIT Internal Medicine; ATTEND Student in an Organized Health Care Education/Training Program